=== PATIENT | female | born 1935 | race Caucasian/White ===

== ENCOUNTER 2023-09-29 08:51 | Day surgery (SDC) | payer OTHER ==
[2023-09-29] VITALS (13 sets, daily range): BP systolic 94–136; BP diastolic 45–72; PULSE 51–71; RESP 10–16
[~2023-09-29] VITALS: Ht 162.6 cm; Wt 63.5 kg
[~2023-09-29 08:51] MED LIST: ASPI-1197 PEG; LEVO50CA4 PEG; MEMA10TA55 PEG; METF-444 PEG; METO25TA6 PEG; QUET25TA36 PEG; TRAZ-187 PEG; VENL50TA43 PEG
[2023-09-29] MEDS ORDERED: PROPOFOL 10 MG/ML 20ML VIAL IV ONE (12:10)
[2023-09-29] MEDS ORDERED: LIDOCAINE PF 100MG/5ML (2%) SYRINGE 5ML ONE (12:11)
== END 2023-09-29 14:20 | disposition home or self-care (01) ==
LOC: ENDO 08:51 → DAH 08:51 → ENDO 14:20
PROVIDERS: ATTEND Internal Medicine Gastroenterology
DX: R13.12 Dysphagia, oropharyngeal phase (principal); K94.23 Gastrostomy malfunction; I10 Essential (primary) hypertension; E11.9 Type 2 diabetes mellitus without complications; E78.5 Hyperlipidemia, unspecified; F32.A Depression, unspecified; I48.91 Unspecified atrial fibrillation; Z98.890 Other specified postprocedural states; Z86.73 Personal history of transient ischemic attack (TIA), and cerebral infarction without residual deficits; Z87.891 Personal history of nicotine dependence; Z79.890 Hormone replacement therapy; Z79.01 Long term (current) use of anticoagulants; Z79.84 Long term (current) use of oral hypoglycemic drugs
CPT/HCPCS: 43246; 82948 ×2; J2001; J2704; A4620; A4215 ×2; A4223; A7002; A4222; A4221; A4663; J7030; A4606; J3490

== ENCOUNTER 2024-08-09 20:45 | Emergency (ER) | payer OTHER ==
[~2024-08-09 20:45] MED LIST changes: +MEMA10TA21 PEG; -MEMA10TA55 PEG; +VENL50TA29 PEG; -VENL50TA43 PEG
[2024-08-09] MEDS ORDERED: DIATR MEGLU/DIATRIZOATE SODIUM 30 ML BOTTLE ONE (21:13)
--- NOTE | 2024-08-09 21:29 | ERN ---
General Chief Complaint: Other Problems Stated Complaint: PEG TUBE DISPLACEMENT Time Seen by MD: 20:59 Time Seen by Midlevel: 20:59 Source: patient History of Present Illness Initial Comments Patient is an 89-year-old female being brought in by family member for evaluation of a PEG tube displacement. According to family member the PEG tube came out completely. This occurred approximately 30 minutes prior to arrival. Allergies: Coded Allergies: No Known Drug Allergies (Unverified Allergy, Unknown, 09/27/23) Home Meds Reported Medications Trazodone HCl (Trazodone HCl) 100 Mg Tablet, 100 MG PEG HS, TAB 09/27/23 Quetiapine Fumarate (Quetiapine Fumarate) 25 Mg Tablet, 25 MG PEG DAILY, TAB 09/27/23 Aspirin (Aspirin) 81 Mg Tab.chew, 81 MG PEG DAILY, TAB.CHEW 09/27/23 Metoprolol Tartrate (Metoprolol Tartrate) 25 Mg Tablet, 25 MG PEG DAILY, TAB 09/27/23 Memantine HCl (Memantine HCl) 10 Mg Tablet, 10 MG PEG BID, TAB 09/27/23 Metformin HCl (Metformin HCl) 500 Mg Tablet, 500 MG PEG DAILY, TAB 09/27/23 Venlafaxine HCl (Venlafaxine HCl) 50 Mg Tablet, 50 MG PEG DAILY, TAB 09/27/23 Levothyroxine Sodium (Levothyroxine) 50 Mcg Capsule, 50 MCG PEG DAILY, CAP 09/27/23 Past Medical History Past Medical History: A-Fib, Dementia, Diabetes-Type II, Hypertension Past Surgical History: Other Surgical History Other: PEG TUBE ROS Dictation CONSTITUTIONAL: Negative except for HPI HEAD/FACE: Negative except for HPI EENT: Negative except for HPI RESPIRATORY: Negative except for HPI GASTROINTESTINAL/ABDOMINAL: Negative except for HPI GENITOURINARY: Negative except for HPI MUSCULOSKELETAL: Negative except for HPI INTEGUMENTARY: Negative except for HPI NEUROLOGICAL/PSYCH: Negative except for HPI HEMATOLOGIC/LYMPHATIC: Negative except for HPI All Systems Negative, Except as noted above. 13 point review of systems assessed and all negative except for above. Physical Exam Physical Exam Dictation PHYSICAL EXAM: GENERAL: alert,, awake oriented x 3 HEENT: EOMI, Sclera non icteric, moist mucosa NECK: Supple, no JVD, trachea midline LUNGS: Clear breath sounds bilaterally. No wheezes HEART: Regular rate and rhythm. Normal S1 and S2, without murmurs ABD: Abdomen soft, nontender. Bowel sounds present, peg tube in place with no signs of infection EXT: No clubbing or cyanosis, NEURO: Alert and oriented to person, follows commands MDM MDM: Patient is an 89-year-old female being brought in by family member for evaluation of a PEG tube displacement. According to family member the PEG tube came out completely. This occurred approximately 30 minutes prior to arrival. On exam the PEG tube appears to be completely out. Patient has a 20 M[place] 20 cc tube. The tube was immediately replaced and then abdominal x-ray with Gastrografin was performed which reveals peg tube in place. Patient was discha rged home. Patient has no complaints Differential diagnosis: Wellness examination, PEG tube evaluation There are no social concerns with this patient. Prescription drug management Prescriptions will include: None Medical management and examination interpretation discussions were had by me with other qualified healthcare professionals as indicated for the patient's care. ED Course Orders Procedure Category Date Status Time Abd 1vw RAD 08/09/24 Resulted 21:00 Diatr PHA 08/09/24 Complete Meglu/Diatrizoate 21:13 Current Medications Medications (Trade) Dose Ordered Sig/Trent Route PRN Reason Start Time Stop Time Status Last Admin Dose Admin Diatrizoate Meglum/ Diatrizoate Sod (Gastrografin 66-10 Solution) 30 ml STK-MED ONCE .ROUTE 08/09/24 21:13 08/09/24 21:13 DC Vital Signs Date Time Temp Pulse Resp B/P (MAP) Pulse Ox O2 Delivery O2 Flow Rate FiO2 08/09/24 22:12 98.8 76 20 137/76 100 Room Air* 0 21 08/09/24 21:04 98.8 77 20 138/78 100 Room Air* 0 21 08/09/24 20:47 62 18 146/74 95 Room Air 0 [place] [id number] [address] IMAGING REPORT Signed PATIENT: KINZA CHILDERS MR#: [id number] : 1935 SEX: F AGE: 89 LOCATION: [facility] ORDER 00 STATUS: REG ER REPORT#: [id number] SERVICE 99 REASON: peg tube replacement ORDERING PHYSICIAN: ROSEANNA KAUFFMAN PROCEDURE: ABD 1VW - ABD 1VW ABD 1VW CLINICAL HISTORY: peg tube replacement COMPARISON: None FINDINGS: Single view of the abdomen was obtained. There is contrast demonstrated within the gastric lumen and small bowel. No definite percutaneous gastric tube appears to be in good position. IMPRESSION: PEG tube appears to be in good position. DICTATED BY: NITIN MORENO DO DATE: 08/09/242142 ELECTRONICALLY SIGNED BY: NITIN MORENO DO DATE: 08/09/242146 DX & DISP Disposition: Discharge Departure Impression: Primary Impression: PEG tube malfunction Condition: Stable Additional Instructions: Your PEG tube was successfully replaced. Please follow up with primary care doctor in 2-3 days for repeat evaluation. If you develop any new or worsening symptoms please report to the ER for further evaluation. Referrals: DYLAN CARUSO MD (PCP) Time of Disposition: 21:29 I have reviewed the case, and I agree with, Diagnosis and Plan I performed the substantive portion of the visit. I have reviewed and personally made and approve the management plan that is documented in the note by myself or the VAN. I acknowledge for responsibility for the patient's management plan. ROSEANNA KAUFFMAN Aug 09, 2024 21:29
--- NOTE | 2024-08-09 21:47 | HMCIMG ---
ABD 1VW CLINICAL HISTORY: peg tube replacement COMPARISON: None FINDINGS: Single view of the abdomen was obtained. There is contrast demonstrated within the gastric lumen and small bowel. No definite percutaneous gastric tube appears to be in good position. IMPRESSION: PEG tube appears to be in good position.
[2024-08-09 22:12] VITALS: BP 137/76; PULSE 76; RESP 20; TEMP 98.7; O2SAT 100
== END 2024-08-09 22:29 | disposition home or self-care (01) ==
LOC: EDH 20:45
DX: K94.23 Gastrostomy malfunction (principal); E11.9 Type 2 diabetes mellitus without complications; F03.90 Unspecified dementia, unspecified severity, without behavioral disturbance, psychotic disturbance, mood disturbance, and anxiety; I10 Essential (primary) hypertension; I48.91 Unspecified atrial fibrillation; Z79.82 Long term (current) use of aspirin; Z79.84 Long term (current) use of oral hypoglycemic drugs; Z79.890 Hormone replacement therapy; Z79.899 Other long term (current) drug therapy; Z98.890 Other specified postprocedural states
CPT/HCPCS: 99284; 43762; 74018; Q9963; 99283